=== PATIENT | female | born 1995 | race Caucasian/White ===

== ENCOUNTER 2016-11-18 00:55 | Inpatient (IN) | payer MEDICAID, OTHER ==
[~2016-11-18] VITALS: Ht 154.9 cm; Wt 69.4 kg
[2016-11-18] MEDS ORDERED: ACTIVATED CHARCOAL 50 GM/240 ML SUSPENSION PO ONE (01:15)
[2016-11-18 02:12] LABS: ANION GAP 12 mmol/L (8-16); CALCIUM, TOTAL 8.2 mg/dL (8.8-10.5); CARBON DIOXIDE 23 mmol/L (22-29); CHLORIDE 104 mmol/L (98-107); CREATININE 0.96 mg/dL (0.60-1.30); GLOMERULAR FILTR. RATE CALC > 60 mL/min (>60); POTASSIUM 3.6 mmol/L (3.5-5.1); SODIUM SERUM 139 mmol/L (136-145); UREA NITROGEN, BLOOD 11 mg/dL (7-18)
[2016-11-18 02:18] LABS: ALANINE AMINOTRANSFERASE 17 U/L (12-78); ALBUMIN 3.7 g/dL (3.4-5.0); ASPARTATE AMINOTRANSFERASE 16 U/L (15-37); TOTAL PROTEIN, SERUM 7.3 g/dL (6.4-8.2)
[2016-11-18 02:19] LABS: ACETAMINOPHEN < 2 mcg/mL (10-30); BASOPHILS % (AUTO) 0.6 % (0.0-2.0); EOSINOPHILS % (AUTO) 0.4 % (1.0-6.0); HEMATOCRIT 45.5 % (36-46); HEMOGLOBIN 14.8 g/dL (12.0-16.0); LYMPHOCYTES # (AUTO) 2.2 K/uL (1.0-4.8); LYMPHOCYTES % (AUTO) 21.1 % (22.0-44.0); MEAN CORPUSCULAR HEMOGLOBIN 27.6 pg (26.0-34.0); MEAN CORPUSCULAR HGB CONC 32.4 G/dL (31.0-37.0); MEAN CORPUSCULAR VOLUME 85 fL (80-100); MONOCYTES # (AUTO) 0.6 K/uL (0.1-1.0); MONOCYTES % (AUTO) 5.7 % (2.0-9.0); NEUTROPHILS # (AUTO) 7.6 K/uL (1.8-7.7); NEUTROPHILS % (AUTO) 72.2 % (40.0-70.0); PLATELET COUNT (AUTO) 210 K/uL (150-450); RED BLOOD CELL COUNT(AUTO) 5.34 MIL/uL (4.00-5.20); RED CELL DISTRIBUTION WIDTH 13.7 % (11.5-14.5); SALICYLATE < 2.8 mg/dL (2.8-20.0); WHITE BLOOD COUNT (AUTO) 10.5 K/uL (4.5-11.0)
[2016-11-18] MEDS ORDERED: SODIUM CHLORIDE 0.9% 1,000 ML IV ONE (03:15)
[2016-11-18 07:07] LABS: ANION GAP 12 mmol/L (8-16); CALCIUM, TOTAL 8.7 mg/dL (8.8-10.5); CARBON DIOXIDE 23 mmol/L (22-29); CHLORIDE 104 mmol/L (98-107); GLOMERULAR FILTR. RATE CALC > 60 mL/min (>60); POTASSIUM 4.1 mmol/L (3.5-5.1); SODIUM SERUM 139 mmol/L (136-145); UREA NITROGEN, BLOOD 9 mg/dL (7-18)
[2016-11-18 07:13] LABS: ALANINE AMINOTRANSFERASE 19 U/L (12-78); ALBUMIN 3.8 g/dL (3.4-5.0); ASPARTATE AMINOTRANSFERASE 12 U/L (15-37); BILIRUBIN,TOTAL 1.3 mg/dL (0.1-1.0); TOTAL PROTEIN, SERUM 7.6 g/dL (6.4-8.2)
[2016-11-18] MEDS ORDERED: INFLUENZA VIRUS VACCINE QVS 2016-17 (3YR+)/PF 60 MCG/0.5 ML SYRINGE IM ONE (12:30)
[2016-11-18] MEDS: LORazepam 2 MG TABLET PO PRN ×2 (16:20→20:36)
[2016-11-18 16:23] VITALS: BP 130/70
[2016-11-18] MEDS: ZOLPIDEM TARTRATE 10 MG TABLET PO PRN (21:57)
[2016-11-19 05:50] VITALS: BP 111/60
[2016-11-19 08:53] VITALS: BP 139/75
[2016-11-19] MEDS ORDERED: PETROLATUM,WHITE 71 GM JELLY TP PRN (09:00)
[2016-11-19] MEDS ORDERED: MAG HYDROX/AL HYDROX/SIMETH ES 30 ML SUSPENSION UDCUP PO PRN (09:00)
[2016-11-19] MEDS ORDERED: BACITRACIN 28.4 GM OINTMENT TP PRN (09:00)
[2016-11-19] MEDS ORDERED: ACETAMINOPHEN 325 MG TABLET PO PRN (09:00)
[2016-11-19] MEDS ORDERED: ONDANSETRON HCL 4 MG TABLET PO PRN (09:00)
[2016-11-19] MEDS ORDERED: ALBUTEROL SULFATE HFA 90 MCG/PUFF 8 GM INHALER IH PRN (09:00)
[2016-11-19] MEDS ORDERED: BENZOCAINE/MENTHOL LOZENGE MM PRN (09:00)
[2016-11-19] MEDS ORDERED: CloNIDine HCL 0.1 MG TABLET PO PRN (09:00)
[2016-11-19] MEDS ORDERED: LOPERAMIDE HCL 2 MG CAPSULE PO PRN (09:00)
[2016-11-19] MEDS ORDERED: MAGNESIUM HYDROXIDE SUSPENSION 30 ML UDCUP PO PRN (09:00)
[2016-11-19] MEDS: LORazepam 2 MG TABLET PO PRN ×2 (09:07→16:05)
[2016-11-19] MEDS ORDERED: ARIPiprazole 5 MG TABLET PO ONE (10:30)
[2016-11-19 16:00] VITALS: BP 133/91
[2016-11-19] MEDS: HALOPERIDOL 5 MG TABLET PO PRN (19:00)
[2016-11-19] MEDS: ZOLPIDEM TARTRATE 10 MG TABLET PO PRN (20:18)
[2016-11-20 07:02] VITALS: BP 135/89
[2016-11-20 08:30] VITALS: BP 133/86
[2016-11-20] MEDS: ARIPiprazole 5 MG TABLET PO SCH (09:28)
[2016-11-20] MEDS: LORazepam 2 MG TABLET PO PRN ×2 (10:21→19:00)
[2016-11-20 16:05] VITALS: BP 100/66
[2016-11-20] MEDS: ZOLPIDEM TARTRATE 10 MG TABLET PO PRN (20:27)
[2016-11-21 00:28] VITALS: BP 105/86
[2016-11-21 04:14] VITALS: BP 145/88
[2016-11-21] MEDS: LORazepam 2 MG TABLET PO PRN ×4 (04:17→18:02)
[2016-11-21 08:17] VITALS: BP 103/61
[2016-11-21] MEDS: ARIPiprazole 5 MG TABLET PO SCH (08:42)
[2016-11-21] MEDS: HALOPERIDOL 5 MG TABLET PO PRN (13:01)
[2016-11-21 16:05] VITALS: BP 119/74
[2016-11-21] MEDS ORDERED: ESCITALOPRAM OXALATE 10 MG TABLET PO ONE (17:45)
[2016-11-21] MEDS: ZOLPIDEM TARTRATE 10 MG TABLET PO PRN (21:00)
[2016-11-22 06:23] VITALS: BP 100/61
[2016-11-22 08:13] VITALS: BP 107/66
[2016-11-22] MEDS: LORazepam 2 MG TABLET PO PRN ×3 (08:17→17:31)
[2016-11-22] MEDS: ESCITALOPRAM OXALATE 10 MG TABLET PO SCH (08:17)
[2016-11-22] MEDS: IBUPROFEN 600 MG TABLET PO PRN ×2 (13:00→20:40)
[2016-11-22 17:15] VITALS: BP 119/65
[2016-11-22] MEDS: ZOLPIDEM TARTRATE 10 MG TABLET PO PRN (20:40)
[2016-11-23 00:09] VITALS: BP 115/61
[2016-11-23] MEDS: LORazepam 2 MG TABLET PO PRN (06:10)
[2016-11-23 08:54] VITALS: BP 113/67
[2016-11-23] MEDS: ESCITALOPRAM OXALATE 10 MG TABLET PO SCH (09:05)
[2016-11-23] MEDS ORDERED: ESCITALOPRAM OXALATE 10 MG TABLET PO SCH (10:30)
[2016-11-23] MEDS ORDERED: ESCI10TA PO (11:08)
== END 2016-11-23 11:45 | disposition home or self-care (01) | DRG 751 ==
LOC: EEVIPCON 00:56 → EMS 00:56 → EDBD 00:56 → UNDOADMIN 02:53 → 5S 02:53 → B2S 10:05
PROC: 3E0234Z Introduction of Serum, Toxoid and Vaccine into Muscle, Percutaneous Approach (ICD-10-PCS; principal; 2016-11-18)
DX: F33.2 Major depressive disorder, recurrent severe without psychotic features (principal); R45.851 Suicidal ideations; F12.90 Cannabis use, unspecified, uncomplicated; T46.4X2A Poisoning by angiotensin-converting-enzyme inhibitors, intentional self-harm, initial encounter; G43.909 Migraine, unspecified, not intractable, without status migrainosus; G47.00 Insomnia, unspecified; Z23 Encounter for immunization; Z79.899 Other long term (current) drug therapy; Y92.89 Other specified places as the place of occurrence of the external cause; Z91.5 Personal history of self-harm; X58.XXXA Exposure to other specified factors, initial encounter; Y93.89 Activity, other specified; Y99.8 Other external cause status
CPT/HCPCS: 83735; 90471; 93005; 96360; 99285; G0480; G0481; J3535

== ENCOUNTER 2017-06-07 15:24 | Emergency (ER) | payer OTHER ==
[~2017-06-07] VITALS: Ht 157.5 cm; Wt 72.5 kg
[2017-06-07 18:58] VITALS: BP 137/86
== END 2017-06-07 19:01 | disposition home or self-care (01) ==
LOC: EMS 15:40
DX: G43.909 Migraine, unspecified, not intractable, without status migrainosus (principal); F32.9 Major depressive disorder, single episode, unspecified; F41.9 Anxiety disorder, unspecified; F12.10 Cannabis abuse, uncomplicated
CPT/HCPCS: 99283

== ENCOUNTER 2023-07-08 13:10 | Inpatient (IN) | payer MEDICAID ==
[~2023-07-08] VITALS: Ht 157.5 cm; Wt 83.9 kg
[2023-07-09] MEDS ORDERED: INFLUENZA VIRUS VACCINE QVS 2023-24 (6MO+)/PF 60 MCG/0.5 ML SYRINGE IM. ONE (18:00)
[2023-07-09] MEDS ORDERED: TRAZ-252 PO (18:10)
[2023-07-09] MEDS ORDERED: BUPR-50 PO (18:10)
[2023-07-09] MEDS ORDERED: QUET25TA PO (18:10)
[2023-07-09 18:51] LABS: GLUCOMETER DEV NAME(LOC) POC.BV; POC SARS-COV2 AG, FIA NEGATIVE (NEGATIVE)
[2023-07-09] MEDS ORDERED: ALBUTEROL SULFATE HFA 90 MCG/PUFF 8 GM INHALER IH PRN (20:00)
[2023-07-09 20:07] VITALS: BP 131/80; PULSE 89; RESP 18; TEMP 97.8; O2SAT 98
[2023-07-09] MEDS: LORazepam 2 MG TABLET PO PRN (21:48)
[2023-07-09] MEDS: ZOLPIDEM TARTRATE 10 MG TABLET PO PRN (21:48)
[2023-07-09] MEDS: NICOTINE 14 MG/24 HOUR PATCH TD SCH (21:57)
[2023-07-10] MEDS: LORazepam 2 MG TABLET PO PRN ×2 (03:45→10:46)
[2023-07-10 08:24] LABS: BASOPHILS % (AUTO) 0.7 % (0.0-2.0); EOSINOPHILS % (AUTO) 0.7 % (1.0-6.0); HEMOGLOBIN 14.1 g/dL (12.0-16.0); LYMPHOCYTES # (AUTO) 2.9 K/uL (1.0-4.8); LYMPHOCYTES % (AUTO) 36.6 % (22.0-44.0); MEAN CORPUSCULAR HEMOGLOBIN 29.2 pg (26.0-34.0); MEAN CORPUSCULAR HGB CONC 33.7 G/dL (31.0-37.0); MEAN CORPUSCULAR VOLUME 87 fL (80-100); MONOCYTES # (AUTO) 0.7 K/uL (0.1-1.0); MONOCYTES % (AUTO) 8.5 % (2.0-9.0); NEUTROPHILS # (AUTO) 4.2 K/uL (1.8-7.7); NEUTROPHILS % (AUTO) 53.5 % (40.0-70.0); PLATELET COUNT (AUTO) 224 K/uL (150-450); RED BLOOD CELL COUNT(AUTO) 4.85 MIL/uL (4.00-5.20); RED CELL DISTRIBUTION WIDTH 13.9 % (11.5-14.5); WHITE BLOOD COUNT (AUTO) 7.9 K/uL (4.5-11.0)
[2023-07-10 08:37] LABS: HEMOGLOBIN A1C 4.9 % (3.8-5.6)
[2023-07-10 08:51] VITALS: BP 119/75; PULSE 86; RESP 17; TEMP 98.6; O2SAT 99
[2023-07-10 08:51] LABS: ALANINE AMINOTRANSFERASE 29 U/L (12-78); ALBUMIN 3.1 g/dL (3.4-5.0); ALKALINE PHOSPHATASE 77 U/L (46-116); ANION GAP 7 mmol/L (8-16); ASPARTATE AMINOTRANSFERASE 12 U/L (15-37); BILIRUBIN,TOTAL 0.4 mg/dL (0.1-1.0); CALCIUM, TOTAL 8.8 mg/dL (8.8-10.5); CARBON DIOXIDE 24 mmol/L (22-29); CHLORIDE 103 mmol/L (98-107); CHOL/HDL RATIO 2.7 (3.9-5.7); CHOLESTEROL 162 mg/dL (131-200); CREATININE 0.73 mg/dL (0.60-1.30); GLOMERULAR FILTR. RATE CALC > 60 mL/min (>60); GLUCOSE,RANDOM 96 mg/dL (70-110); HCG,QUANTITATIVE < 1 mIU/mL (0-6); HDL CHOLESTEROL 61 mg/dL (40-60); LDL CHOL (CALC.) 87 mg/dL (0-130); POTASSIUM 4.1 mmol/L (3.5-5.1); SODIUM SERUM 134 mmol/L (136-145); TOTAL PROTEIN, SERUM 6.6 g/dL (6.4-8.2); TRIGLYCERIDES 69 mg/dL (15-150); UREA NITROGEN, BLOOD 13 mg/dL (7-18)
[2023-07-10] MEDS: NICOTINE 14 MG/24 HOUR PATCH TD SCH (09:11)
[2023-07-10] MEDS: HALOPERIDOL 5 MG TABLET PO PRN (10:46)
[2023-07-10] MEDS: QUEtiapine FUMARATE 25 MG TABLET PO SCH (13:00)
[2023-07-10] MEDS ORDERED: CloNIDine HCL 0.1 MG TABLET PO PRN (15:00)
[2023-07-10] MEDS ORDERED: MAGNESIUM HYDROXIDE SUSPENSION 30 ML UDCUP PO PRN (15:00)
[2023-07-10] MEDS ORDERED: ALBUTEROL SULFATE HFA 90 MCG/PUFF 8 GM INHALER IH PRN (15:00)
[2023-07-10] MEDS ORDERED: ACETAMINOPHEN 325 MG TABLET PO PRN (15:00)
[2023-07-10] MEDS ORDERED: GuaiFENesin/D-METHORPHAN [SUGAR-FREE] 200-20MG/10 ML SYRUP UDCUP PO PRN (15:00)
[2023-07-10] MEDS ORDERED: IBUPROFEN 400 MG TABLET PO PRN (15:00)
[2023-07-10] MEDS ORDERED: NICOTINE 14 MG/24 HOUR PATCH TD PRN (15:00)
[2023-07-10] MEDS ORDERED: MAG HYDROX/ALUMINUM HYD/SIMETH ES 30 ML SUSPENSION UDCUP PO PRN (15:00)
[2023-07-10] MEDS ORDERED: ONDANSETRON HCL 4 MG TABLET PO PRN (15:00)
[2023-07-10] MEDS ORDERED: DOCUSATE SODIUM 100 MG CAPSULE PO PRN (15:00)
[2023-07-10] MEDS ORDERED: PETROLATUM,WHITE 28 GM JELLY TP PRN (15:00)
[2023-07-10] MEDS ORDERED: LOPERAMIDE HCL 2 MG CAPSULE PO PRN (15:00)
[2023-07-10 20:23] VITALS: BP 113/62; PULSE 91; RESP 18; TEMP 97.6; O2SAT 96
[2023-07-10] MEDS ORDERED: QUEtiapine FUMARATE 100 MG TABLET PO SCH (21:00)
[2023-07-11] MEDS: NICOTINE 14 MG/24 HOUR PATCH TD SCH (08:51)
[2023-07-11] MEDS: QUEtiapine FUMARATE 25 MG TABLET PO SCH (08:58)
[2023-07-11 09:02] LABS: CHOL/HDL RATIO 2.9 (3.9-5.7); THYROID STIMULATING HORMONE 3.35 uIU/mL (0.36-3.74)
[2023-07-11 09:59] VITALS: BP 109/68; PULSE 91; RESP 17; TEMP 97.8; O2SAT 96
[2023-07-11] MEDS: BuPROPion HCL 75 MG TABLET PO SCH (11:01)
[2023-07-11] MEDS ORDERED: QUET100T PO (11:20)
[2023-07-11] MEDS ORDERED: BUPR-344 PO (11:20)
[2023-07-11] MEDS: LORazepam 2 MG TABLET PO PRN (17:15)
[2023-07-11 18:12] VITALS: RESP 16
[2023-07-11] MEDS: ZOLPIDEM TARTRATE 10 MG TABLET PO PRN (20:12)
[2023-07-11 20:44] VITALS: BP 110/70; PULSE 89; RESP 17; TEMP 97.9; O2SAT 96
[2023-07-11] MEDS ORDERED: QUEtiapine FUMARATE 100 MG TABLET PO SCH (21:00)
[2023-07-11] MEDS: HALOPERIDOL 5 MG TABLET PO PRN (22:18)
[2023-07-12 08:08] VITALS: BP 108/70; PULSE 83; RESP 18; TEMP 97.5; O2SAT 100
[2023-07-12] MEDS: BuPROPion HCL 75 MG TABLET PO SCH (08:30)
[2023-07-12] MEDS: NICOTINE 14 MG/24 HOUR PATCH TD SCH (08:30)
[2023-07-12] MEDS ORDERED: BUPR-50 PO (13:08)
[2023-07-12] MEDS ORDERED: QUET100T34 PO (13:08)
== END 2023-07-12 15:50 | disposition home or self-care (01) | DRG 751 ==
LOC: B2S 07-09 17:36
PROVIDERS: ADMIT Psychiatry & Neurology Child & Adolescent Psychiatry; ATTEND Psychiatry & Neurology Child & Adolescent Psychiatry
DX: F33.2 Major depressive disorder, recurrent severe without psychotic features (principal); E87.1 Hypo-osmolality and hyponatremia; R45.851 Suicidal ideations; F41.9 Anxiety disorder, unspecified; Z20.822 Contact with and (suspected) exposure to COVID-19; G47.00 Insomnia, unspecified; Z79.899 Other long term (current) drug therapy; Z88.0 Allergy status to penicillin; Z88.1 Allergy status to other antibiotic agents
CPT/HCPCS: 80053; 80061; 83036; 84443; 84702; 85025; 86592; J3535